=== PATIENT | female | born 1945 | race Two or more races ===

== ENCOUNTER 2023-02-25 12:19 | Inpatient (IN) | payer OTHER ==
[~2023-02-25] VITALS: Ht 160 cm; Wt 59.4 kg
[2023-02-25 12:47] LABS: BASOPHILS % (AUTO) 0.3 % (0.0-2.0); EOSINOPHILS # (AUTO) 0.1 K/uL (0.0-0.7); EOSINOPHILS % (AUTO) 0.6 % (0.0-6.0); HEMATOCRIT 35 % (33-45); HEMOGLOBIN 11.4 g/dL (11.5-14.8); LYMPHOCYTES # (AUTO) 1.2 K/uL (0.8-4.8); LYMPHOCYTES % (AUTO) 11.4 % (20.0-44.0); MEAN CORPUSCULAR HEMOGLOBIN 30 PG (26.0-33.0); MEAN CORPUSCULAR HGB CONC 33 g/dl (31.0-36.0); MEAN CORPUSCULAR VOLUME 89 fL (82-100); MONOCYTES # (AUTO) 0.5 K/uL (0.1-1.30); MONOCYTES % (AUTO) 4.4 % (2.0-12.0); NEUTROPHILS # (AUTO) 8.8 K/uL (1.8-8.9); NEUTROPHILS % (AUTO) 83.3 % (43.0-81.0); PLATELET COUNT (AUTO) 141 K/uL (150-450); RED BLOOD CELL COUNT(AUTO) 3.88 MIL/uL (4.0-5.2); RED CELL DISTRIBUTION WIDTH 13.1 % (11.5-15.0); WHITE BLOOD COUNT (AUTO) 10.5 K/uL (4.3-11.0)
[2023-02-25] MEDS ORDERED: ATEN25TA PO (12:48)
[2023-02-25] MEDS ORDERED: GLIP5TAB13 PO (12:48)
[2023-02-25] MEDS ORDERED: PIOG1TAB7 PO (12:48)
[2023-02-25 12:57] LABS: CALCIUM, SERUM 8.8 mg/dL (8.5-10.1); CARBON DIOXIDE 26 mmol/L (21-32); CHLORIDE 99 mmol/L (98-107); GLUCOSE 254 mg/dL (74-106); POTASSIUM 4.3 mmol/L (3.5-5.1); SODIUM SERUM 134 mmol/L (136-145); UREA NITROGEN, BLOOD 22 mg/dL (7-18)
[2023-02-25] MEDS ORDERED: ONDANSETRON HCL/PF - ER 4 MG/2 ML VIAL IV ONE (13:00)
[2023-02-25] MEDS ORDERED: MECLIZINE HCL 12.5 MG TABLET PO ONE (13:00)
[2023-02-25 13:04] LABS: INR 0.95 (0.91-1.10); PARTIAL THROMBOPLASTIN TIME 23.3 SEC (24.3-34.3); PROTHROMBIN TIME 10.1 SECS (9.2-11.1)
[2023-02-25] MEDS ORDERED: MECLIZINE HCL 25 MG TABLET ONE (13:46)
[2023-02-25] MEDS: IV NS 0.9% 1,000 ML BAG IV ONE ×2 (13:46→13:47)
[2023-02-25] MEDS ORDERED: ONDANSETRON HCL/PF 4 MG/2 ML VIAL ONE (13:46)
[2023-02-25] MEDS ORDERED: SITA25TA PO (14:20)
[2023-02-25] MEDS ORDERED: OMEP20CA15 PO (14:20)
[2023-02-25] MEDS ORDERED: SERT25TA5 PO (14:20)
[2023-02-25] MEDS ORDERED: ASPI-1420 PO (14:20)
[2023-02-25] MEDS ORDERED: CHOL100043 PO (14:20)
[2023-02-25] MEDS ORDERED: METF-440 PO (14:20)
[2023-02-25] MEDS ORDERED: LOSA50TA39 PO (14:20)
[2023-02-25] MEDS ORDERED: FENO48TA6 PO (14:20)
[2023-02-25] MEDS ORDERED: ASPIRIN 81 MG TAB.CHEW PO ONE (15:30)
[2023-02-25 16:10] LABS: BILIRUBIN,DIRECT 0.2 mg/dL (0.0-0.2); BILIRUBIN,TOTAL 0.7 mg/dL (0.2-1.0); TOTAL PROTEIN, SERUM 7.2 g/dL (6.4-8.2)
[2023-02-25] MEDS ORDERED: ASPIRIN 81 MG TAB.CHEW ONE (16:11)
[2023-02-25] MEDS ORDERED: DEXTROSE 50%-WATER 50 ML DISP.SYRIN IV PRN (17:00)
[2023-02-25] MEDS ORDERED: BLOOD SUGAR DIAGNOSTIC 1 EACH STRIP VI SCH (17:30)
[2023-02-25 17:54] LABS: BASOPHILS % (AUTO) 0.2 % (0.0-2.0); EOSINOPHILS % (AUTO) 0.1 % (0.0-6.0); HEMATOCRIT 35 % (33-45); HEMOGLOBIN 11.5 g/dL (11.5-14.8); LYMPHOCYTES # (AUTO) 1.7 K/uL (0.8-4.8); LYMPHOCYTES % (AUTO) 17.6 % (20.0-44.0); MEAN CORPUSCULAR HEMOGLOBIN 30 PG (26.0-33.0); MEAN CORPUSCULAR HGB CONC 33 g/dl (31.0-36.0); MEAN CORPUSCULAR VOLUME 89 fL (82-100); MONOCYTES # (AUTO) 0.2 K/uL (0.1-1.30); MONOCYTES % (AUTO) 2.5 % (2.0-12.0); NEUTROPHILS # (AUTO) 7.5 K/uL (1.8-8.9); NEUTROPHILS % (AUTO) 79.6 % (43.0-81.0); PLATELET COUNT (AUTO) 148 K/uL (150-450); RED CELL DISTRIBUTION WIDTH 13.2 % (11.5-15.0); WHITE BLOOD COUNT (AUTO) 9.5 K/uL (4.3-11.0)
[2023-02-25] MEDS ORDERED: BLOOD SUGAR DIAGNOSTIC 1 EACH STRIP IN SCH (18:00)
[2023-02-25] MEDS: BLOOD SUGAR DIAGNOSTIC 1 EACH STRIP IN SCH ×2 (18:06→21:23)
[2023-02-25 18:18] LABS: CALCIUM, SERUM 8.9 mg/dL (8.5-10.1); POTASSIUM 4.2 mmol/L (3.5-5.1)
[2023-02-25 18:24] LABS: THYROID STIMULATING HORMONE 0.335 uIU/mL (0.358-3.74)
[2023-02-25 18:27] LABS: ERYTHROCYTE SEDIMENTATION RATE 19 MM/HR (0-30)
[2023-02-25 18:41] LABS: BILIRUBIN,TOTAL 0.7 mg/dL (0.2-1.0)
[2023-02-25 18:42] LABS: TOTAL PROTEIN, SERUM 7.4 g/dL (6.4-8.2)
[2023-02-25 19:32] LABS: APPEARANCE,URINE CLEAR (CLEAR); BILIRUBIN,URINE NEGATIVE (NEGATIVE); BLOOD, URINE NEGATIVE Ery/uL (NEGATIVE); COLOR,URINE YELLOW (YELLOW); KETONES,URINE NEGATIVE (NEGATIVE); LEUKOCYTE ESTERASE ,URINE NEGATIVE (NEGATIVE); NITRITE, URINE NEGATIVE (NEGATIVE); PH,URINE 6.5 (5.0-8.0); PROTEIN,URINE NEGATIVE (NEGATIVE); UGLUCOSE NEGATIVE (NEGATIVE); UROBILINOGEN,URINE 0.2 EU/dL (0.2)
[2023-02-25 19:48] LABS: AMPHETAMINE, URINE NEGATIVE (NEGATIVE); BARBITURATE, URINE NEGATIVE (NEGATIVE); BENZODIAZEPINE, URINE NEGATIVE (NEGATIVE); CANNABINOID, URINE NEGATIVE (NEGATIVE); COCCAINE, URINE NEGATIVE (NEGATIVE); OPIATE, URINE NEGATIVE (NEGATIVE); PHENCYCLIDINE SCREEN,URINE NEGATIVE (NEGATIVE)
[2023-02-25 20:00] VITALS: BP 157/51; TEMP 97.9; O2SAT 99
[2023-02-25] MEDS: *INSULIN REGULAR(HUMULIN R)HUM 100 UNIT/ML VIAL SQ PRN (21:44)
[2023-02-25 23:29] VITALS: BP 148/54; TEMP 97.8; O2SAT 97
[2023-02-26 05:00] VITALS: BP 127/78; TEMP 98.1; O2SAT 99
[2023-02-26 05:42] LABS: BASOPHILS % (AUTO) 0.4 % (0.0-2.0); EOSINOPHILS # (AUTO) 0.1 K/uL (0.0-0.7); EOSINOPHILS % (AUTO) 1.7 % (0.0-6.0); HEMATOCRIT 31 % (33-45); HEMOGLOBIN 10.3 g/dL (11.5-14.8); LYMPHOCYTES # (AUTO) 2.5 K/uL (0.8-4.8); LYMPHOCYTES % (AUTO) 41.2 % (20.0-44.0); MEAN CORPUSCULAR HEMOGLOBIN 30 PG (26.0-33.0); MEAN CORPUSCULAR HGB CONC 33 g/dl (31.0-36.0); MEAN CORPUSCULAR VOLUME 89 fL (82-100); MONOCYTES # (AUTO) 0.4 K/uL (0.1-1.30); MONOCYTES % (AUTO) 6.8 % (2.0-12.0); NEUTROPHILS # (AUTO) 3.1 K/uL (1.8-8.9); NEUTROPHILS % (AUTO) 49.9 % (43.0-81.0); PLATELET COUNT (AUTO) 133 K/uL (150-450); RED BLOOD CELL COUNT(AUTO) 3.46 MIL/uL (4.0-5.2); RED CELL DISTRIBUTION WIDTH 12.9 % (11.5-15.0); WHITE BLOOD COUNT (AUTO) 6.2 K/uL (4.3-11.0)
[2023-02-26 05:58] LABS: CARBON DIOXIDE 24 mmol/L (21-32); CHLORIDE 107 mmol/L (98-107); CREATININE 0.9 mg/dL (0.6-1.3); GLUCOSE 128 mg/dL (74-106); POTASSIUM 4.1 mmol/L (3.5-5.1); SODIUM SERUM 140 mmol/L (136-145); UREA NITROGEN, BLOOD 15 mg/dL (7-18)
[2023-02-26 06:05] LABS: CHOLESTEROL 177 mg/dL (<200); HDL CHOLESTEROL 40 mg/dL (40-60); LDL 117 mg/dL (0-99); TRIGLYCERIDES 124 mg/dL (30-150)
[2023-02-26] MEDS: BLOOD SUGAR DIAGNOSTIC 1 EACH STRIP IN SCH ×4 (06:28→21:40)
[2023-02-26] MEDS: PANTOPRAZOLE 40 MG TABLET.DR PO SCH (08:01)
[2023-02-26 08:25] VITALS: BP 135/56; TEMP 98.1; O2SAT 97
[2023-02-26] MEDS: LOSARTAN POTASSIUM 50 MG TABLET PO SCH (08:32)
[2023-02-26] MEDS: ASPIRIN EC 81 MG TABLET.DR PO SCH (08:32)
[2023-02-26] MEDS: SERTRALINE HCL 25 MG TABLET PO SCH (08:32)
[2023-02-26] MEDS: ATENOLOL 25 MG TABLET PO SCH (08:33)
[2023-02-26] MEDS: Fenofibrate 48 MG TABLET PO SCH (08:34)
[2023-02-26] MEDS: INSULIN REGULAR, HUMAN 100 UNIT/ML 3 ML VIAL SQ PRN ×2 (12:05→17:51)
[2023-02-26 16:10] VITALS: BP 148/48; TEMP 98.1; O2SAT 97
[2023-02-26 20:00] VITALS: BP 155/51; TEMP 98.4; O2SAT 97
[2023-02-26] MEDS: *INSULIN REGULAR(HUMULIN R)HUM 100 UNIT/ML VIAL SQ PRN (21:42)
[2023-02-26] MEDS ORDERED: INSULIN GLARGINE, 100 UNIT/ML CARTRIDGE SQ SCH (22:00)
[2023-02-27] VITALS: BP_SYST 143; BP_DIAS 51; BP_DIAS 57; TEMP 98.2; O2SAT 100
[2023-02-27 04:00] VITALS: BP_SYST 147; BP_SYST 161; BP_DIAS 56; TEMP 97.7; O2SAT 97
[2023-02-27] MEDS: BLOOD SUGAR DIAGNOSTIC 1 EACH STRIP IN SCH ×3 (06:31→17:59)
[2023-02-27 08:00] VITALS: BP 182/62; TEMP 98.1; O2SAT 95
[2023-02-27] MEDS: LOSARTAN POTASSIUM 50 MG TABLET PO SCH (08:21)
[2023-02-27] MEDS: PANTOPRAZOLE 40 MG TABLET.DR PO SCH (08:21)
[2023-02-27] MEDS: SERTRALINE HCL 25 MG TABLET PO SCH (08:21)
[2023-02-27] MEDS: ATENOLOL 25 MG TABLET PO SCH (08:23)
[2023-02-27] MEDS: Fenofibrate 48 MG TABLET PO SCH (08:25)
[2023-02-27] MEDS: ASPIRIN EC 81 MG TABLET.DR PO SCH (08:25)
[2023-02-27] MEDS ORDERED: LOSA100T31 PO (12:52)
[2023-02-27] MEDS ORDERED: METF-442 PO (12:53)
[2023-02-27 16:00] VITALS: BP 125/54; TEMP 98.9; O2SAT 96
== END 2023-02-27 18:47 | disposition home or self-care (01) | DRG 305 ==
LOC: ER 12:23 → TELE 15:30
PROVIDERS: ADMIT Nurse Practitioner Acute Care; ATTEND Nurse Practitioner Acute Care
DX: I16.0 Hypertensive urgency (principal); R42 Dizziness and giddiness; I10 Essential (primary) hypertension; K21.9 Gastro-esophageal reflux disease without esophagitis; H93.19 Tinnitus, unspecified ear; R11.2 Nausea with vomiting, unspecified; I65.23 Occlusion and stenosis of bilateral carotid arteries; E78.5 Hyperlipidemia, unspecified; F32.A Depression, unspecified; Z79.84 Long term (current) use of oral hypoglycemic drugs; G93.89 Other specified disorders of brain; E11.65 Type 2 diabetes mellitus with hyperglycemia
CPT/HCPCS: 36415; 70450-TC; 70496-TC; 70498-TC; 70551-TC; 80048-TC; 80053-TC; 80061-TC; 80076-TC; 82962-TC; 83690-TC; 84443-TC; 84480; 84484-TC; 85025-TC; 85652-TC; 85730-TC; 92521; 92526; 92611-TC; 93307-TC; 97116-TC; 97530-TC; G0378; J1815; J2405; J7030; J8597

== ENCOUNTER 2023-12-15 18:56 | Emergency (ER) | payer OTHER ==
[~2023-12-15] VITALS: Ht 160 cm; Wt 61.7 kg
[~2023-12-15 18:56] MED LIST: ASPI-1420 PO; ATEN25TA PO; CHOL100043 PO; FENO48TA6 PO; GLIP5TAB13 PO; LOSA100T31 PO; METF-442 PO; OMEP20CA15 PO; SERT25TA5 PO; SITA25TA PO
[2023-12-15] MEDS ORDERED: ONDANSETRON HCL/PF 4 MG/2 ML VIAL ONE (19:18)
[2023-12-15] MEDS ORDERED: ACETAMINOPHEN ES 500 MG TABLET ONE (19:18)
[2023-12-15] MEDS: IV NS 0.9% 500 ML BAG IV ONE (19:32)
[2023-12-15] MEDS: ACETAMINOPHEN ES 500 MG TABLET PO ONE (19:32)
[2023-12-15] MEDS: ONDANSETRON HCL/PF 4 MG/2 ML VIAL IVP ONE (19:32)
[2023-12-15 19:36] LABS: BASOPHILS % (AUTO) 0.6 % (0.0-2.0); EOSINOPHILS # (AUTO) 0.1 K/uL (0.0-0.7); HEMATOCRIT 35 % (33-45); HEMOGLOBIN 11.8 g/dL (11.5-14.8); LYMPHOCYTES # (AUTO) 2.2 K/uL (0.8-4.8); LYMPHOCYTES % (AUTO) 40.1 % (20.0-44.0); MEAN CORPUSCULAR HEMOGLOBIN 30 PG (26.0-33.0); MEAN CORPUSCULAR HGB CONC 33 g/dl (31.0-36.0); MEAN CORPUSCULAR VOLUME 89 fL (82-100); MONOCYTES # (AUTO) 0.4 K/uL (0.1-1.30); MONOCYTES % (AUTO) 8.2 % (2.0-12.0); NEUTROPHILS # (AUTO) 2.7 K/uL (1.8-8.9); NEUTROPHILS % (AUTO) 50.1 % (43.0-81.0); PLATELET COUNT (AUTO) 168 K/uL (150-450); RED BLOOD CELL COUNT(AUTO) 3.96 MIL/uL (4.0-5.2); RED CELL DISTRIBUTION WIDTH 12.7 % (11.5-15.0); WHITE BLOOD COUNT (AUTO) 5.5 K/uL (4.3-11.0)
[2023-12-15 19:52] LABS: CALCIUM, SERUM 9.7 mg/dL (8.5-10.1); CARBON DIOXIDE 31 mmol/L (21-32); CHLORIDE 99 mmol/L (98-107); GLUCOSE 188 mg/dL (74-106); SODIUM SERUM 136 mmol/L (136-145); UREA NITROGEN, BLOOD 24 mg/dL (7-18)
[2023-12-15 19:56] LABS: ALANINE AMINOTRANSFERASE 15 U/L (12-78); ALBUMIN 3.7 g/dL (3.4-5.0); ALKALINE PHOSPHATASE 72 U/L (46-116); ASPARTATE AMINOTRANSFERASE 10 U/L (15-37); BILIRUBIN,DIRECT 0.2 mg/dL (0.0-0.2); BILIRUBIN,TOTAL 0.8 mg/dL (0.2-1.0); TOTAL PROTEIN, SERUM 7.7 g/dL (6.4-8.2)
[2023-12-15 20:43] LABS: APPEARANCE,URINE CLEAR (CLEAR); BILIRUBIN,URINE NEGATIVE (NEGATIVE); BLOOD, URINE NEGATIVE Ery/uL (NEGATIVE); KETONES,URINE NEGATIVE (NEGATIVE); LEUKOCYTE ESTERASE ,URINE 1+ (NEGATIVE); NITRITE, URINE NEGATIVE (NEGATIVE); PROTEIN,URINE NEGATIVE (NEGATIVE); UGLUCOSE NEGATIVE (NEGATIVE); UROBILINOGEN,URINE 0.2 EU/dL (0.2)
[2023-12-15 20:54] LABS: COLOR,URINE LIGHT YELLOW (YELLOW)
[2023-12-15 20:55] LABS: ADD URINE CULTURE YES; BACTERIA,URINE 1+ /HPF (None Seen); MUCUS,URINE Few /LPF (None Seen); RBC,URINE 0-2 /HPF (0-2); SQUAMOUS EPITHELIAL CELL,UR 0-2 /HPF (None Seen)
[2023-12-15] MEDS ORDERED: CEFTRIAXONE 1GM BAG (ER ONLY) 50 ML IV ONE (21:05)
[2023-12-15] MEDS: CEFTRIAXONE 1GM BAG (ER ONLY) 1 GM/50 ML PIGGYBACK IV ONE (21:13)
[2023-12-15] MEDS ORDERED: NITR100C PO (21:18)
[2023-12-15] MEDS ORDERED: OMEP20CA15 PO (21:18)
[2023-12-15] MEDS ORDERED: FAMOTIDINE/PF INJ 20 MG/2 ML VIAL IV ONE (21:22)
[2023-12-15] MEDS ORDERED: MAG HYDROX/AL HYDROX/SIMETH 30 ML UDC ONE (21:22)
[2023-12-15] MEDS: MAG HYDROX/AL HYDROX/SIMETH 30 ML UDC PO ONE (21:37)
[2023-12-15] MEDS: FAMOTIDINE/PF INJ 20 MG/2 ML VIAL IV ONE (21:37)
[2023-12-15 23:11] VITALS: BP 159/70; TEMP 98.4; O2SAT 98
== END 2023-12-15 23:11 | disposition home or self-care (01) ==
LOC: ER 18:56
DX: N39.0 Urinary tract infection, site not specified (principal); K21.9 Gastro-esophageal reflux disease without esophagitis; R53.1 Weakness; R51.9 Headache, unspecified; I10 Essential (primary) hypertension; E11.9 Type 2 diabetes mellitus without complications; Z79.84 Long term (current) use of oral hypoglycemic drugs; Z79.82 Long term (current) use of aspirin; Z79.899 Other long term (current) drug therapy; Z20.822 Contact with and (suspected) exposure to COVID-19; Z60.2 Problems related to living alone
CPT/HCPCS: 99285; 96365; 70450; 96375; 71045; 87426; 93005; 85025; 80048; 87086; 80076; 81001; 36415; J3490; J2405; J7030; J0696